=== PATIENT | female | born 1985 | race Caucasian/White ===

== ENCOUNTER 2020-02-25 16:06 | Outpatient (REF) | payer OTHER, SELFPAY | END 2020-02-25 16:07 | disposition home or self-care (01) | LOC: HO.LAB 16:06 | PROVIDERS: Visit Provider Internal Medicine | DX: Z20.828 Contact with and (suspected) exposure to other viral communicable diseases (principal) | CPT/HCPCS: 36415; C9803; U0003 ==

== ENCOUNTER 2022-04-24 01:59 | Emergency (ER) | payer OTHER, SELFPAY ==
[2022-04-24 02:08] VITALS: BP 115/48; PULSE 78; RESP 18; TEMP 36.8; O2SAT 98; BMI 29.2
--- NOTE | 2022-04-24 03:08 | ED.DENTAL ---
HPI - Dental/Oral General Chief complaint: Dental/Oral Stated complaint: ?Toothache, pain right side of face Time Seen by Provider: 04/24/22 02:13 Source: patient Mode of arrival: ambulatory History of Present Illness HPI Narrative: 36-year-old female without significant past medical history presents with right upper dental pain without fevers or chills. Related Data Previous Rx's Medication Instructions Recorded amoxicillin 875 mg-potassium 1 tab PO Q12H 10 days #20 tabs 04/24/22 clavulanate 125 mg tablet Allergies Allergy/AdvReac Type Severity Reaction Status Date / Time No Known Allergies Allergy Unverified 11/07/19 15:45 Excedrin Migraine Allergy Unknown Uncoded 12/24/10 00:00 Penicillin Allergy Unknown Uncoded 12/24/10 00:00 Review of Systems Review of Systems: Pertinent positives and negatives as stated in HPI [facility] Past Medical History Source: nursing notes reviewed Social History Social History Advance Directives: No Advance Directives Information Provided: No Physical Exam Vital Signs: Vital Signs: Last Vital Signs Temp 98.2 F 04/24/22 02:08 Pulse 78 04/24/22 02:08 Resp 18 04/24/22 02:08 BP 115/48 L 04/24/22 02:08 Pulse Ox 98 04/24/22 02:08 O2 Del Method 04/24/22 02:08 BMI result Body Mass Index 29.2 VITAL SIGNS: Reviewed. GENERAL: Well developed, well nourished, in no acute distress. HEAD: Normocephalic/atraumatic EYES: PERRLA, EOMI OROPHARYNX: no oral lesions noted, posterior pharynx clear, mild gingival swelling to the upper posterior gum line with noted missing portion of tooth NECK: Supple, no adenopathy LUNGS: Normal breath sounds. No adventitious sounds or accessory muscle use. SpO2<98> CARDIOVASCULAR: Regular rate and rhythm without noted murmurs ABDOMEN: Soft, non-tender, non-distended with bowel sounds. NEUROLOGIC: Alert and oriented x 4. Medical Decision Making Medical Decision Making [facility] Narrative: 36-year-old female who has obvious dental infection, will receive initial antibiotics as well as combination analgesics and topical anesthetic here in the emergency room and then be discharged home on remaining course of antibiotics. Differential Diagnosis Please see the discussion above Discharge Plan Discharge Clinical Impression: Toothache, Dental infection Patient Disposition: Home, Self-Care Instructions: Dental Abscess (ED), Toothache (ED) Additional Instructions: 1. Complete the entire course of antibiotics as ordered. 2. Recommend [id number] Tylenol/ibuprofen as needed for pain control, also consider [id number] Anbesol. 3. Follow-up with the dentist on Monday morning. Prescriptions: New amoxicillin-pot clavulanate 875-125 mg tablet 1 tab PO Q12H 10 Days Qty: 20 0RF
[2022-04-24] MEDS: Amoxicillin/Potassium Clav 875 MG TABLET PO (03:29)
[2022-04-24] MEDS: Ibuprofen 400 MG TABLET PO (03:29)
[2022-04-24] MEDS: Acetaminophen 325 MG TABLET 975 MG PO (03:29)
== END 2022-04-24 03:35 | disposition home or self-care (01) ==
PROVIDERS: Emergency Provider Student in an Organized Health Care Education/Training Program
DX: K04.7 Periapical abscess without sinus (principal)
CPT/HCPCS: 99283; 99284

== ENCOUNTER 2022-07-22 10:01 | Emergency (ER) | payer OTHER, SELFPAY ==
[2022-07-22 10:06] VITALS: BP 107/64; PULSE 57; RESP 16; TEMP 36.1; O2SAT 98; BMI 30.2
--- NOTE | 2022-07-22 10:45 | PC.NURSE ---
NO ACUTE RESPIRATORY DIFFICULTY. HANDLES SECRETIONS, NEG COVID/STREP
[2022-07-22 11:12] LABS: IDNOW Serial# 08D9AD1C; Strep A Nucleic Acid Negative (Negative)
[2022-07-22 11:32] LABS: COVID-19 Test Negative (Negative); IDNOW Serial# BCCEAD1C
--- NOTE | 2022-07-22 11:38 | ED.URI ---
HPI - URI/Sore Throat General Chief Complaint: Upper Respiratory Symptoms Stated Complaint: sore throat, unable to swallow Time Seen by Provider: 07/22/22 10:04 History of Present Illness HPI Narrative: Patient complains of 1 day of sore throat, increased runny nose and congestion, no cough, there is mild pain with swallowing but she is easily able to swallow There is no headache there is no stiff neck there is no chest pain no sputum no cough no shortness of breath no abdominal pain no nausea vomiting or diarrhea no dysuria Related Data Previous Rx's Medication Instructions Recorded amoxicillin 875 mg-potassium 1 tab PO Q12H 10 days #20 tabs 04/24/22 clavulanate 125 mg tablet albuterol sulfate 90 mcg/actuation 2 puff inhalation Q4-6H PRN 07/22/22 aerosol inhaler shortness of breath or wheezing #8.5 grams cetirizine 10 mg tablet 10 mg PO DAILY PRN allergy 07/22/22 symptoms #30 tabs oxymetazoline 0.05 % nasal spray 2 spray intranasal Q12H PRN nasal 07/22/22 congestion 4 days #22 mL prednisone 20 mg tablet 60 mg PO DAILY 3 days #9 tabs 07/22/22 Allergies Allergy/AdvReac Type Severity Reaction Status Date / Time No Known Allergies Allergy Unverified 11/07/19 15:45 Excedrin Migraine Allergy Unknown Uncoded 12/24/10 00:00 Penicillin Allergy Unknown Uncoded 12/24/10 00:00 [facility] Past Medical History Source: nursing notes reviewed Social History Social History Advance Directives: No Advance Directives Information Provided: Yes Physical Exam Vital Signs: Vital Signs: Last Vital Signs Temp 96.9 F 07/22/22 10:06 Pulse 57 07/22/22 10:06 Resp 16 07/22/22 10:06 BP 107/64 07/22/22 10:06 Pulse Ox 98 07/22/22 10:06 O2 Del Method Room Air 07/22/22 10:06 BMI result Body Mass Index 30.2 General appearance is no acute distress The eyes no redness or discharge The nose is congested but no sinus tenderness The pharynx there is mild erythema no exudate uvula midline voice is normal membranes moist Neck is supple Chest clear to auscultation bilateral no wheezes Heart no murmur Extremities full range of motion x4 Skin no rash Course Course Course Narrative: Strep and COVID tests are negative Well-appearing patient with congestion and throat soreness is treated with steroid and symptomatic relief and discharged Medical Decision Making Lab Data Labs: Lab Results 07/22/22 07/22/22 Range/Units 10:52 10:52 COVID-19 (REBECA) Negative (Negative) COVID-19 Clin Com See Note S. pyogenes GrpA KEISHA Negative (Negative) Discharge Plan Discharge Clinical Impression: Upper respiratory infection, Allergies Patient Disposition: Home, Self-Care Additional Instructions: Your symptoms are likely from a cold developing on top of your regular allergies You can take cetirizine, also called [employer] for allergies Oxymetazoline nose spray you can use 2 or 3 sprays in each nostril twice a day to relieve nasal congestion, but has a rebound effect after about 5 days so do not use it for more than 5 days Steroids sometimes help relieve allergies congestion and asthma Follow with her doctor Return any time any worse condition or any concerns Prescriptions: New cetirizine 10 mg tablet 10 mg PO DAILY PRN (Reason: allergy symptoms) Qty: 30 0RF prednisone 20 mg tablet 60 mg PO DAILY 3 Days Qty: 9 0RF oxymetazoline 0.05 % spray,non-aerosol 2 spray intranasal Q12H PRN (Reason: nasal congestion) 4 Days Qty: 22 0RF albuterol sulfate 90 mcg/actuation HFA aerosol inhaler 2 puff inhalation Q4-6H PRN (Reason: shortness of breath or wheezing) Qty: 8.5 0RF No Action amoxicillin-pot clavulanate 875-125 mg tablet 1 tab PO Q12H 10 Days Qty: 20 0RF Stand Alone Forms: Work/School Release
[2022-07-22] MEDS: dexAMETHasone 2 MG TABLET 10 MG PO (11:50)
== END 2022-07-22 11:56 | disposition home or self-care (01) ==
PROVIDERS: Physician Assistant Medical; Emergency Provider Emergency Medicine
DX: J06.9 Acute upper respiratory infection, unspecified (principal); J02.9 Acute pharyngitis, unspecified; J30.2 Other seasonal allergic rhinitis; Z20.822 Contact with and (suspected) exposure to COVID-19
CPT/HCPCS: 87635; 87651; 99282; 99283; J8540

== ENCOUNTER 2022-11-06 13:39 | Emergency (ER) | payer OTHER, SELFPAY | END 2022-11-06 16:31 | disposition left against medical advice (07) | LOC: HO.ED 16:29 | PROVIDERS: Emergency Provider Emergency Medicine | DX: R06.02 Shortness of breath (principal) ==